=== PATIENT | female | born 1935 | race Asian ===

== ENCOUNTER 2016-07-30 10:22 | Inpatient (IN) | payer MEDICARE, OTHER ==
[~2016-07-30] VITALS: Ht 147.3 cm; Wt 53.3 kg
[~2016-07-30 10:22] MED LIST: AMLO1TAB13 PO; ASPI-1093 PO; FISH1CAP49 PO; LORA10TA7 PO; METO50TA5 PO; MONT10TA21 PO; VITA1CAP PO; VITAD1000 PO
[2016-07-30 10:37] LABS: GLUCOSE,POINT OF CARE 231 MG/DL (70-110)
[2016-07-30 11:35] LABS: HEMATOCRIT 35.6 % (36-46); HEMOGLOBIN 11.8 g/dL (12.0-16.0); MEAN CORPUSCULAR HEMOGLOBIN 27.8 pg (26.0-34.0); MEAN CORPUSCULAR HGB CONC 33.1 G/dL (31.0-37.0); MEAN CORPUSCULAR VOLUME 84 fL (80-100); PLATELET COUNT (AUTO) 138 K/uL (150-450); RED BLOOD CELL COUNT(AUTO) 4.24 MIL/uL (4.00-5.20); RED CELL DISTRIBUTION WIDTH 14.2 % (11.5-14.5)
[2016-07-30 11:44] LABS: ANION GAP 9 mmol/L (8-16); CARBON DIOXIDE 29 mmol/L (22-29); CHLORIDE 103 mmol/L (98-107); CREATININE 0.88 mg/dL (0.60-1.30); GLOMERULAR FILTR. RATE CALC > 60 mL/min (>60); POTASSIUM 3.7 mmol/L (3.5-5.1); SODIUM SERUM 141 mmol/L (136-145); UREA NITROGEN, BLOOD 14 mg/dL (7-18)
[2016-07-30 11:48] LABS: BAND NEUTROPHILS % (MANUAL) 7 % (1-5); LYMPHOCYTES % (MANUAL) 14 % (22-44); RBC MORPHOLOGY COMMENT NORMAL RBC MORPH; TOTAL CELLS COUNTED 100
[2016-07-30 11:50] LABS: ALANINE AMINOTRANSFERASE 38 U/L (12-78); ASPARTATE AMINOTRANSFERASE 23 U/L (15-37); BILIRUBIN,TOTAL 0.5 mg/dL (0.1-1.0); TOTAL PROTEIN, SERUM 8.3 g/dL (6.4-8.2)
[2016-07-30 12:24] LABS: APPEARANCE,URINE CLEAR (CLEAR); GLUCOSE, URINE (UA) NEGATIVE (NEGATIVE); KETONES,URINE NEGATIVE (NEGATIVE); LEUKOCYTE ESTERASE ,URINE SMALL (NEGATIVE); OCCULT BLOOD,URINE SMALL (NEGATIVE); PROTEIN,URINE TRACE (NEGATIVE)
[2016-07-30 12:25] LABS: ADD UA MICROSCOPIC YES
[2016-07-30 12:28] LABS: SQUAMOUS EPITHELIAL CELL,UR Few /LPF (None Seen); WBC,URINE 0-2 /HPF (0-5)
[2016-07-30] MEDS ORDERED: LEVOFLOXACIN 500 MG/D5% WATER 100 ML IV ONE (13:30)
[2016-07-30] MEDS ORDERED: KETOROLAC TROMETHAMINE 30 MG/ML VIAL IVP ONE (13:45)
[2016-07-30] MEDS ORDERED: ALBUTEROL SULFATE 2.5 MG/0.5 ML NEB SOLUTION NEB PRN (16:30)
[2016-07-30] MEDS ORDERED: SODIUM CHLORIDE 0.9% 1,000 ML IV ONE (16:30)
[2016-07-30] MEDS ORDERED: DEXTROSE 50%-WATER 25 GM/50 ML SYRINGE IVP PRN ×2 (16:30)
[2016-07-30] MEDS ORDERED: INSULIN ASPART 100 UNITS/ML SQ PRN (16:30)
[2016-07-30 17:07] VITALS: BP 137/64
[2016-07-30 18:07] LABS: GLUCOSE,POINT OF CARE 172 MG/DL (70-110)
[2016-07-30] MEDS: INSULIN ASPART 100 UNITS/ML SQ PRN (18:15)
[2016-07-30 19:34] VITALS: BP 149/62
[2016-07-30] MEDS: TraMADol HCL 50 MG TABLET PO PRN (20:38)
[2016-07-30] MEDS: DOCUSATE SODIUM 100 MG CAPSULE PO SCH (20:38)
[2016-07-30] MEDS ORDERED: [UNRECOGNIZED DRUG - OTHER] PO SCH (21:00)
[2016-07-30] MEDS: VALSARTAN 160 MG TABLET PO SCH (21:42)
[2016-07-30] MEDS: AmLODIPine BESYLATE 10 MG TABLET PO SCH (21:42)
[2016-07-30] MEDS: METOPROLOL TARTRATE 50 MG TABLET PO SCH (21:42)
[2016-07-30 23:22] VITALS: BP 133/67
[2016-07-30] MEDS: HEPARIN SODIUM,PORCINE 5,000 UNITS/ML VIAL SQ SCH (23:34)
[2016-07-31 05:52] LABS: HEMATOCRIT 32.7 % (36-46); HEMOGLOBIN 10.7 g/dL (12.0-16.0); MEAN CORPUSCULAR HEMOGLOBIN 27.9 pg (26.0-34.0); MEAN CORPUSCULAR HGB CONC 32.8 G/dL (31.0-37.0); MEAN CORPUSCULAR VOLUME 85 fL (80-100); PLATELET COUNT (AUTO) 125 K/uL (150-450); RED BLOOD CELL COUNT(AUTO) 3.85 MIL/uL (4.00-5.20); RED CELL DISTRIBUTION WIDTH 14.1 % (11.5-14.5); WHITE BLOOD COUNT (AUTO) 16.9 K/uL (4.5-11.0)
[2016-07-31 06:27] VITALS: BP 129/69
[2016-07-31 06:56] LABS: GLUCOSE,POINT OF CARE 124 MG/DL (70-110)
[2016-07-31 07:20] LABS: BAND NEUTROPHILS % (MANUAL) 7 % (1-5); LYMPHOCYTES % (MANUAL) 19 % (22-44); TOTAL CELLS COUNTED 100
[2016-07-31 07:27] VITALS: BP 131/61
[2016-07-31] MEDS: LORATADINE 10 MG TABLET PO SCH (08:05)
[2016-07-31] MEDS: METOPROLOL TARTRATE 50 MG TABLET PO SCH ×2 (08:05→20:39)
[2016-07-31] MEDS: FISH OIL/OMEGA-3 FATTY ACIDS 500 MG CAPSULE PO SCH (08:05)
[2016-07-31] MEDS: MONTELUKAST SODIUM 10 MG TABLET PO SCH (08:05)
[2016-07-31] MEDS: HEPARIN SODIUM,PORCINE 5,000 UNITS/ML VIAL SQ SCH ×3 (08:05→23:30)
[2016-07-31] MEDS: VITAMIN B COMPLEX ER TABLET PO SCH (08:05)
[2016-07-31] MEDS: ASPIRIN 81 MG CHEWABLE TABLET PO SCH (08:06)
[2016-07-31] MEDS: DOCUSATE SODIUM 100 MG CAPSULE PO SCH ×2 (08:06→20:39)
[2016-07-31] MEDS: CHOLECALCIFEROL (VIT D3) 1,000 UNITS TABLET PO SCH (08:06)
[2016-07-31] MEDS: ACETAMINOPHEN 325 MG TABLET PO PRN (08:11)
[2016-07-31] MEDS ORDERED: ASPIRIN 81 MG EC TABLET PO SCH (09:00)
[2016-07-31 11:01] VITALS: BP 134/60
[2016-07-31] MEDS: LEVOFLOXACIN 500 MG/D5% WATER 100 ML IV SCH (12:01)
[2016-07-31 12:02] LABS: GLUCOSE,POINT OF CARE 85 MG/DL (70-110)
[2016-07-31 15:38] VITALS: BP 133/64
[2016-07-31] MEDS: AmLODIPine BESYLATE 10 MG TABLET PO SCH (17:30)
[2016-07-31] MEDS: VALSARTAN 160 MG TABLET PO SCH (17:30)
[2016-07-31 18:32] LABS: GLUCOSE,POINT OF CARE 120 MG/DL (70-110)
[2016-07-31 18:32] LABS: GLUCOSE,POINT OF CARE 89 MG/DL (70-110)
[2016-07-31 19:32] VITALS: BP 133/67
[2016-07-31 21:17] LABS: GLUCOSE,POINT OF CARE 119 MG/DL (70-110)
[2016-07-31] MEDS: OxyCODONE HCL/ACETAMINOPHEN 5-325 MG TABLET PO PRN (23:20)
[2016-07-31 23:41] VITALS: BP 141/76
[2016-08-01 05:06] VITALS: BP 127/65
[2016-08-01 06:32] LABS: GLUCOSE,POINT OF CARE 101 MG/DL (70-110)
[2016-08-01 07:52] VITALS: BP 130/81
[2016-08-01] MEDS: LORATADINE 10 MG TABLET PO SCH (08:27)
[2016-08-01] MEDS: METOPROLOL TARTRATE 50 MG TABLET PO SCH ×2 (08:27→19:57)
[2016-08-01] MEDS: DOCUSATE SODIUM 100 MG CAPSULE PO SCH ×2 (08:27→19:57)
[2016-08-01] MEDS: MONTELUKAST SODIUM 10 MG TABLET PO SCH (08:28)
[2016-08-01] MEDS: VITAMIN B COMPLEX ER TABLET PO SCH (08:28)
[2016-08-01] MEDS: CHOLECALCIFEROL (VIT D3) 1,000 UNITS TABLET PO SCH (08:28)
[2016-08-01] MEDS: TraMADol HCL 50 MG TABLET PO PRN (08:28)
[2016-08-01] MEDS: FISH OIL/OMEGA-3 FATTY ACIDS 500 MG CAPSULE PO SCH (08:28)
[2016-08-01] MEDS: HEPARIN SODIUM,PORCINE 5,000 UNITS/ML VIAL SQ SCH ×3 (08:28→23:08)
[2016-08-01] MEDS: ASPIRIN 81 MG CHEWABLE TABLET PO SCH (08:28)
[2016-08-01] MEDS: OxyCODONE HCL/ACETAMINOPHEN 5-325 MG TABLET PO PRN ×2 (08:31→15:29)
[2016-08-01] MEDS ORDERED: SODIUM CHLORIDE 0.9% 100 ML ONE (09:29)
[2016-08-01] MEDS ORDERED: IOVERSOL 320 MG/ML 100 ML VIAL ONE (09:29)
[2016-08-01 11:20] VITALS: BP 118/56
[2016-08-01] MEDS: LEVOFLOXACIN 500 MG/D5% WATER 100 ML IV SCH (11:20)
[2016-08-01 11:47] LABS: GLUCOSE,POINT OF CARE 117 MG/DL (70-110)
[2016-08-01 15:29] VITALS: BP 130/69
[2016-08-01] MEDS: AmLODIPine BESYLATE 10 MG TABLET PO SCH (18:16)
[2016-08-01] MEDS: VALSARTAN 160 MG TABLET PO SCH (18:16)
[2016-08-01 18:21] LABS: GLUCOSE,POINT OF CARE 111 MG/DL (70-110)
[2016-08-01] MEDS: GuaiFENesin SR 600 MG ER TABLET PO SCH (19:57)
[2016-08-01] MEDS: INSULIN ASPART 100 UNITS/ML SQ PRN (19:57)
[2016-08-01 20:04] VITALS: BP 146/78
[2016-08-01 23:17] VITALS: BP 138/69
[2016-08-02 05:00] VITALS: BP 132/70
[2016-08-02] MEDS: INSULIN ASPART 100 UNITS/ML SQ PRN ×2 (05:44→12:26)
[2016-08-02 05:51] LABS: GLUCOSE COMMENT 1 Received Meds; GLUCOSE,POINT OF CARE 147 MG/DL (70-110)
[2016-08-02 06:57] LABS: GLUCOSE COMMENT 1 Received Meds; GLUCOSE,POINT OF CARE 196 MG/DL (70-110)
[2016-08-02 07:07] VITALS: BP 125/55
[2016-08-02 07:28] LABS: BASOPHILS % (AUTO) 0.1 % (0.0-2.0); EOSINOPHILS % (AUTO) 0.2 % (1.0-6.0); HEMATOCRIT 35.2 % (36-46); HEMOGLOBIN 11.6 g/dL (12.0-16.0); LYMPHOCYTES # (AUTO) 1.5 K/uL (1.0-4.8); LYMPHOCYTES % (AUTO) 6.9 % (22.0-44.0); MEAN CORPUSCULAR HEMOGLOBIN 27.8 pg (26.0-34.0); MEAN CORPUSCULAR HGB CONC 33.1 G/dL (31.0-37.0); MEAN CORPUSCULAR VOLUME 84 fL (80-100); MONOCYTES % (AUTO) 31.4 % (2.0-9.0); NEUTROPHILS # (AUTO) 13.7 K/uL (1.8-7.7); NEUTROPHILS % (AUTO) 61.4 % (40.0-70.0); PLATELET COUNT (AUTO) 128 K/uL (150-450); RED BLOOD CELL COUNT(AUTO) 4.18 MIL/uL (4.00-5.20); RED CELL DISTRIBUTION WIDTH 14.3 % (11.5-14.5); WHITE BLOOD COUNT (AUTO) 22.3 K/uL (4.5-11.0)
[2016-08-02] MEDS ORDERED: MAGNESIUM CITRATE 300 ML ORAL SOLUTION PO ONE (07:30)
[2016-08-02] MEDS: GuaiFENesin SR 600 MG ER TABLET PO SCH ×2 (09:40→22:09)
[2016-08-02] MEDS: DOCUSATE SODIUM 100 MG CAPSULE PO SCH ×2 (09:40→21:00)
[2016-08-02] MEDS: MONTELUKAST SODIUM 10 MG TABLET PO SCH (09:40)
[2016-08-02] MEDS: FISH OIL/OMEGA-3 FATTY ACIDS 500 MG CAPSULE PO SCH (09:40)
[2016-08-02] MEDS: CHOLECALCIFEROL (VIT D3) 1,000 UNITS TABLET PO SCH (09:40)
[2016-08-02] MEDS: METOPROLOL TARTRATE 50 MG TABLET PO SCH ×2 (09:40→22:09)
[2016-08-02] MEDS: ASPIRIN 81 MG CHEWABLE TABLET PO SCH (09:40)
[2016-08-02] MEDS: VITAMIN B COMPLEX ER TABLET PO SCH (09:40)
[2016-08-02] MEDS: LORATADINE 10 MG TABLET PO SCH (09:40)
[2016-08-02] MEDS: HEPARIN SODIUM,PORCINE 5,000 UNITS/ML VIAL SQ SCH ×3 (09:42→23:56)
[2016-08-02] MEDS: LEVOFLOXACIN 500 MG/D5% WATER 100 ML IV SCH (09:48)
[2016-08-02] MEDS ORDERED: SODIUM CHLORIDE 0.9% 500 ML IV ONE (09:50)
[2016-08-02] MEDS: TraMADol HCL 50 MG TABLET PO PRN ×3 (09:59→23:56)
[2016-08-02 11:48] VITALS: BP 124/64
[2016-08-02 11:52] LABS: GLUCOSE,POINT OF CARE 220 MG/DL (70-110)
[2016-08-02 15:31] VITALS: BP 109/69
[2016-08-02 17:22] LABS: GLUCOSE,POINT OF CARE 110 MG/DL (70-110)
[2016-08-02] MEDS: AmLODIPine BESYLATE 10 MG TABLET PO SCH (17:43)
[2016-08-02] MEDS: VALSARTAN 160 MG TABLET PO SCH (18:10)
[2016-08-02 19:38] VITALS: BP 144/63
[2016-08-02 19:54] LABS: ANION GAP 11 mmol/L (8-16); CALCIUM, TOTAL 9.1 mg/dL (8.8-10.5); CARBON DIOXIDE 25 mmol/L (22-29); CHLORIDE 102 mmol/L (98-107); CREATININE 0.88 mg/dL (0.60-1.30); GLOMERULAR FILTR. RATE CALC > 60 mL/min (>60); POTASSIUM 3.8 mmol/L (3.5-5.1); SODIUM SERUM 138 mmol/L (136-145); UREA NITROGEN, BLOOD 13 mg/dL (7-18)
[2016-08-02] MEDS ORDERED: GADOBUTROL 1 MMOL/ML 10 ML VIAL IVP ONE (19:55)
[2016-08-02 20:00] LABS: ALANINE AMINOTRANSFERASE 48 U/L (12-78); ALBUMIN 3.7 g/dL (3.4-5.0); ASPARTATE AMINOTRANSFERASE 44 U/L (15-37); BILIRUBIN,TOTAL 0.7 mg/dL (0.1-1.0)
[2016-08-02 23:06] VITALS: BP 117/56
[2016-08-03 04:25] VITALS: BP 116/67
[2016-08-03 05:27] LABS: GLUCOSE COMMENT 1 Received Meds; GLUCOSE,POINT OF CARE 199 MG/DL (70-110)
[2016-08-03] MEDS: TraMADol HCL 50 MG TABLET PO PRN ×2 (06:00→13:12)
[2016-08-03 06:10] LABS: ALBUMIN 3.6 g/dL (3.4-5.0); BILIRUBIN,TOTAL 0.7 mg/dL (0.1-1.0); CALCIUM, TOTAL 8.9 mg/dL (8.8-10.5); CREATININE 0.97 mg/dL (0.60-1.30); POTASSIUM 3.5 mmol/L (3.5-5.1)
[2016-08-03 06:21] LABS: HEMATOCRIT 33.8 % (36-46); HEMOGLOBIN 11.4 g/dL (12.0-16.0); MEAN CORPUSCULAR HEMOGLOBIN 28.2 pg (26.0-34.0); MEAN CORPUSCULAR HGB CONC 33.8 G/dL (31.0-37.0); MEAN CORPUSCULAR VOLUME 84 fL (80-100); PLATELET COUNT (AUTO) 119 K/uL (150-450); RED BLOOD CELL COUNT(AUTO) 4.04 MIL/uL (4.00-5.20); RED CELL DISTRIBUTION WIDTH 14.2 % (11.5-14.5)
[2016-08-03 06:40] LABS: WHITE BLOOD COUNT (AUTO) 39.5 K/uL (4.5-11.0)
[2016-08-03 07:30] VITALS: BP 140/68
[2016-08-03] MEDS: OxyCODONE HCL/ACETAMINOPHEN 5-325 MG TABLET PO PRN ×2 (07:55→15:35)
[2016-08-03] MEDS: CHOLECALCIFEROL (VIT D3) 1,000 UNITS TABLET PO SCH (07:55)
[2016-08-03] MEDS: ASPIRIN 81 MG CHEWABLE TABLET PO SCH (07:55)
[2016-08-03] MEDS: LORATADINE 10 MG TABLET PO SCH (07:56)
[2016-08-03] MEDS: FISH OIL/OMEGA-3 FATTY ACIDS 500 MG CAPSULE PO SCH (07:56)
[2016-08-03] MEDS: DOCUSATE SODIUM 100 MG CAPSULE PO SCH ×2 (07:56→20:16)
[2016-08-03] MEDS: METOPROLOL TARTRATE 50 MG TABLET PO SCH ×2 (07:56→20:17)
[2016-08-03] MEDS: VITAMIN B COMPLEX ER TABLET PO SCH (07:57)
[2016-08-03] MEDS: HEPARIN SODIUM,PORCINE 5,000 UNITS/ML VIAL SQ SCH ×2 (07:57→16:40)
[2016-08-03] MEDS: MONTELUKAST SODIUM 10 MG TABLET PO SCH (07:57)
[2016-08-03] MEDS: GuaiFENesin SR 600 MG ER TABLET PO SCH ×2 (07:58→20:17)
[2016-08-03 08:44] LABS: BAND NEUTROPHILS % (MANUAL) 4 % (1-5); EOSINOPHILS % (MANUAL) 1 % (1-6); LYMPHOCYTES % (MANUAL) 6 % (22-44); METAMYELOCYTES % 1 % (0-0); TOTAL CELLS COUNTED 100
[2016-08-03 08:45] LABS: RBC MORPHOLOGY COMMENT NORMAL RBC MORPH
[2016-08-03] MEDS: LEVOFLOXACIN 500 MG/D5% WATER 100 ML IV SCH (09:37)
[2016-08-03 11:00] VITALS: BP 133/79
[2016-08-03 13:37] LABS: GLUCOSE COMMENT 1 Received Meds; GLUCOSE,POINT OF CARE 131 MG/DL (70-110)
[2016-08-03 13:37] LABS: GLUCOSE,POINT OF CARE 255 MG/DL (70-110)
[2016-08-03 15:20] VITALS: BP 132/62
[2016-08-03 17:37] LABS: GLUCOSE,POINT OF CARE 137 MG/DL (70-110)
[2016-08-03] MEDS: VALSARTAN 160 MG TABLET PO SCH (18:00)
[2016-08-03] MEDS: AmLODIPine BESYLATE 10 MG TABLET PO SCH (18:00)
[2016-08-03 18:34] LABS: URIC ACID 3.7 mg/dL (2.6-7.2)
[2016-08-03 20:01] VITALS: BP 138/64
[2016-08-04] VITALS (8 sets, daily range): BP systolic 105–147; BP diastolic 50–67
[2016-08-04] MEDS: HEPARIN SODIUM,PORCINE 5,000 UNITS/ML VIAL SQ SCH ×4 (00:38→23:51)
[2016-08-04] MEDS: SODIUM CHLORIDE 0.9% 1,000 ML IV SCH ×2 (03:30→14:55)
[2016-08-04 05:33] LABS: GLUCOSE COMMENT 1 Received Meds; GLUCOSE,POINT OF CARE 213 MG/DL (70-110)
[2016-08-04] MEDS ORDERED: LIDOCAINE HCL/PF 2% 5 ML VIAL IM ONE (05:33)
[2016-08-04] MEDS ORDERED: PROPOFOL 1% 20 ML VIAL IVP ONE (05:33)
[2016-08-04] MEDS ORDERED: FentaNYL CITRATE-PF 100 MCG/2 ML VIAL IVP ONE (05:33)
[2016-08-04] MEDS ORDERED: ALBUTEROL SULFATE HFA 90 MCG/PUFF 8 GM INHALER IH ONE (05:33)
[2016-08-04] MEDS ORDERED: SODIUM CL IRRIG SOLN BAG 3,000 ML IRRIG ONE (06:43)
[2016-08-04 06:47] LABS: ALBUMIN 3.1 g/dL (3.4-5.0); BILIRUBIN,TOTAL 0.7 mg/dL (0.1-1.0); CALCIUM, TOTAL 8.9 mg/dL (8.8-10.5); CREATININE 0.91 mg/dL (0.60-1.30); POTASSIUM 3.2 mmol/L (3.5-5.1); TOTAL PROTEIN, SERUM 7.3 g/dL (6.4-8.2)
[2016-08-04 06:51] LABS: GLUCOSE COMMENT 1 Juice/Food/D50 Given; GLUCOSE,POINT OF CARE 122 MG/DL (70-110)
[2016-08-04 07:13] LABS: HEMATOCRIT 30.9 % (36-46); HEMOGLOBIN 10.4 g/dL (12.0-16.0); MEAN CORPUSCULAR HEMOGLOBIN 28.3 pg (26.0-34.0); MEAN CORPUSCULAR HGB CONC 33.6 G/dL (31.0-37.0); MEAN CORPUSCULAR VOLUME 84 fL (80-100); PLATELET COUNT (AUTO) 102 K/uL (150-450); RED BLOOD CELL COUNT(AUTO) 3.66 MIL/uL (4.00-5.20); RED CELL DISTRIBUTION WIDTH 14.6 % (11.5-14.5)
[2016-08-04 07:22] LABS: WHITE BLOOD COUNT (AUTO) 48.1 K/uL (4.5-11.0)
[2016-08-04 07:24] LABS: PROCALCITONIN (PCT) 1.79 ng/mL (<0.50)
[2016-08-04] MEDS ORDERED: RINGERS SOLUTION,LACTATED 1,000 ML IV ONE (07:33)
[2016-08-04] MEDS ORDERED: SODIUM CHLORIDE 0.9% 10 ML ONE (07:40)
[2016-08-04] MEDS ORDERED: VANCOMYCIN HCL 1 GM/VIAL ONE (07:40)
[2016-08-04] MEDS ORDERED: HYDROmorphone 2 MG/ML SYRINGE IVP PRN (08:15)
[2016-08-04] MEDS ORDERED: MEPERIDINE-PF 25 MG/ML SYRINGE IVP PRN (08:15)
[2016-08-04] MEDS ORDERED: FentaNYL CITRATE-PF 100 MCG/2 ML VIAL IVP PRN (08:15)
[2016-08-04 08:40] LABS: BAND NEUTROPHILS % (MANUAL) 14 % (1-5); LYMPHOCYTES % (MANUAL) 5 % (22-44); RBC MORPHOLOGY COMMENT ABNORMAL RBC MORPH; TOTAL CELLS COUNTED 100
[2016-08-04] MEDS: VITAMIN B COMPLEX ER TABLET PO SCH (10:55)
[2016-08-04] MEDS: ASPIRIN 81 MG CHEWABLE TABLET PO SCH (10:55)
[2016-08-04] MEDS: FISH OIL/OMEGA-3 FATTY ACIDS 500 MG CAPSULE PO SCH (10:56)
[2016-08-04] MEDS: CHOLECALCIFEROL (VIT D3) 1,000 UNITS TABLET PO SCH (10:57)
[2016-08-04] MEDS: METOPROLOL TARTRATE 50 MG TABLET PO SCH ×2 (10:57→21:37)
[2016-08-04] MEDS: MONTELUKAST SODIUM 10 MG TABLET PO SCH (10:57)
[2016-08-04] MEDS: OxyCODONE HCL/ACETAMINOPHEN 5-325 MG TABLET PO PRN (10:57)
[2016-08-04] MEDS: POTASSIUM CHLORIDE 20 MEQ ER TABLET PO PRN (10:58)
[2016-08-04] MEDS ORDERED: VANCOMYCIN HCL 500 MG in DEXTROSE 5%-WATER 100 ML IV ONE (11:00)
[2016-08-04] MEDS: DOCUSATE SODIUM 100 MG CAPSULE PO SCH ×2 (11:01→21:37)
[2016-08-04] MEDS ORDERED: SODIUM CHLORIDE 0.9% 250 ML IV ONE (11:14)
[2016-08-04] MEDS: INSULIN ASPART 100 UNITS/ML SQ PRN ×2 (12:04→17:59)
[2016-08-04] MEDS: GuaiFENesin SR 600 MG ER TABLET PO SCH ×2 (12:21→23:51)
[2016-08-04] MEDS: LORATADINE 10 MG TABLET PO SCH (12:21)
[2016-08-04] MEDS ORDERED: 0.9% SODIUM CHLORIDE 10 ML SYRINGE IVP PRN (12:45)
[2016-08-04] MEDS: LEVOFLOXACIN 750 MG/D5% WATER 150 ML IV SCH (13:46)
[2016-08-04] MEDS: TraMADol HCL 50 MG TABLET PO PRN (16:22)
[2016-08-04] MEDS: AmLODIPine BESYLATE 10 MG TABLET PO SCH (18:01)
[2016-08-04] MEDS: VALSARTAN 160 MG TABLET PO SCH (18:02)
[2016-08-04] MEDS: ACETAMINOPHEN 325 MG TABLET PO PRN (21:37)
[2016-08-04] MEDS: OXYGEN THERAPY IH SCH (21:37)
[2016-08-05 01:37] LABS: GLUCOSE COMMENT 1 Received Meds; GLUCOSE,POINT OF CARE 209 MG/DL (70-110)
[2016-08-05] MEDS: SODIUM CHLORIDE 0.9% 1,000 ML IV SCH ×2 (04:05→18:08)
[2016-08-05 04:28] VITALS: BP 114/55
[2016-08-05] MEDS: INSULIN ASPART 100 UNITS/ML SQ PRN ×3 (06:15→20:48)
[2016-08-05 06:34] LABS: HEMATOCRIT 27.5 % (36-46); HEMOGLOBIN 8.9 g/dL (12.0-16.0); MEAN CORPUSCULAR HEMOGLOBIN 27.6 pg (26.0-34.0); MEAN CORPUSCULAR HGB CONC 32.2 G/dL (31.0-37.0); MEAN CORPUSCULAR VOLUME 86 fL (80-100); PLATELET COUNT (AUTO) 101 K/uL (150-450); RED BLOOD CELL COUNT(AUTO) 3.21 MIL/uL (4.00-5.20); RED CELL DISTRIBUTION WIDTH 14.1 % (11.5-14.5)
[2016-08-05 06:52] LABS: ALANINE AMINOTRANSFERASE 58 U/L (12-78); ALBUMIN 2.6 g/dL (3.4-5.0); ANION GAP 9 mmol/L (8-16); ASPARTATE AMINOTRANSFERASE 51 U/L (15-37); BILIRUBIN,TOTAL 0.9 mg/dL (0.1-1.0); CALCIUM, TOTAL 8.4 mg/dL (8.8-10.5); CARBON DIOXIDE 27 mmol/L (22-29); CHLORIDE 104 mmol/L (98-107); CREATININE 0.84 mg/dL (0.60-1.30); GLOMERULAR FILTR. RATE CALC > 60 mL/min (>60); POTASSIUM 4.3 mmol/L (3.5-5.1); SODIUM SERUM 140 mmol/L (136-145); TOTAL PROTEIN, SERUM 6.8 g/dL (6.4-8.2); UREA NITROGEN, BLOOD 8 mg/dL (7-18)
[2016-08-05 06:55] LABS: WHITE BLOOD COUNT (AUTO) 44.2 K/uL (4.5-11.0)
[2016-08-05 07:10] VITALS: BP 132/60
[2016-08-05] MEDS: VANCOMYCIN HCL 1.25 GM in DEXTROSE 5%-WATER 250 ML IV SCH (07:25)
[2016-08-05] MEDS: OXYGEN THERAPY IH SCH ×2 (07:25→19:38)
[2016-08-05] MEDS: TraMADol HCL 50 MG TABLET PO PRN ×2 (07:32→18:09)
[2016-08-05 07:44] LABS: BAND NEUTROPHILS % (MANUAL) 7 % (1-5); LYMPHOCYTES % (MANUAL) 5 % (22-44); REACTIVE LYMPHOCYTES 2 % (0-0); TOTAL CELLS COUNTED 100
[2016-08-05] MEDS: HEPARIN SODIUM,PORCINE 5,000 UNITS/ML VIAL SQ SCH ×3 (08:00→23:37)
[2016-08-05] MEDS: VITAMIN B COMPLEX ER TABLET PO SCH (09:48)
[2016-08-05] MEDS: FISH OIL/OMEGA-3 FATTY ACIDS 500 MG CAPSULE PO SCH (09:48)
[2016-08-05] MEDS: MONTELUKAST SODIUM 10 MG TABLET PO SCH (09:49)
[2016-08-05] MEDS: DOCUSATE SODIUM 100 MG CAPSULE PO SCH ×2 (09:49→20:35)
[2016-08-05] MEDS: ASPIRIN 81 MG CHEWABLE TABLET PO SCH (09:49)
[2016-08-05] MEDS: LORATADINE 10 MG TABLET PO SCH (09:49)
[2016-08-05] MEDS: METOPROLOL TARTRATE 50 MG TABLET PO SCH ×2 (09:49→20:36)
[2016-08-05] MEDS: CHOLECALCIFEROL (VIT D3) 1,000 UNITS TABLET PO SCH (09:49)
[2016-08-05] MEDS: GuaiFENesin SR 600 MG ER TABLET PO SCH ×2 (09:49→20:37)
[2016-08-05] MEDS: LEVOFLOXACIN 750 MG/D5% WATER 150 ML IV SCH (11:00)
[2016-08-05 11:09] VITALS: BP 118/57
[2016-08-05] MEDS: HYDROGEN PEROXIDE 473 ML SOLUTION PO SCH ×3 (13:22→20:37)
[2016-08-05] MEDS: LIDOCAINE HCL 2% VISCOUS 15 ML SOLUTION UDCUP PO SCH ×3 (13:22→20:40)
[2016-08-05 15:02] VITALS: BP 109/57
[2016-08-05] MEDS: AmLODIPine BESYLATE 10 MG TABLET PO SCH (18:08)
[2016-08-05] MEDS: VALSARTAN 160 MG TABLET PO SCH (18:08)
[2016-08-05 19:48] VITALS: BP 132/59
[2016-08-05] MEDS: ACETAMINOPHEN 325 MG TABLET PO PRN (20:36)
[2016-08-05 23:52] VITALS: BP 108/52
[2016-08-06] VITALS (10 sets, daily range): BP systolic 114–128; BP diastolic 50–78
[2016-08-06] MEDS: TraMADol HCL 50 MG TABLET PO PRN ×2 (05:28→12:02)
[2016-08-06] MEDS: MAGNESIUM HYDROXIDE SUSPENSION 30 ML UDCUP PO PRN (05:30)
[2016-08-06 07:12] LABS: HEMATOCRIT 22.9 % (36-46); HEMOGLOBIN 7.6 g/dL (12.0-16.0); MEAN CORPUSCULAR HEMOGLOBIN 28.2 pg (26.0-34.0); MEAN CORPUSCULAR HGB CONC 33.3 G/dL (31.0-37.0); MEAN CORPUSCULAR VOLUME 85 fL (80-100); PLATELET COUNT (AUTO) 111 K/uL (150-450); RED CELL DISTRIBUTION WIDTH 14.9 % (11.5-14.5)
[2016-08-06 07:22] LABS: ALANINE AMINOTRANSFERASE 73 U/L (12-78); ALBUMIN 2.3 g/dL (3.4-5.0); ANION GAP 10 mmol/L (8-16); ASPARTATE AMINOTRANSFERASE 68 U/L (15-37); CALCIUM, TOTAL 8.2 mg/dL (8.8-10.5); CARBON DIOXIDE 27 mmol/L (22-29); CHLORIDE 103 mmol/L (98-107); CREATININE 0.81 mg/dL (0.60-1.30); GLOMERULAR FILTR. RATE CALC > 60 mL/min (>60); POTASSIUM 3.4 mmol/L (3.5-5.1); SODIUM SERUM 140 mmol/L (136-145); TOTAL PROTEIN, SERUM 6.3 g/dL (6.4-8.2); UREA NITROGEN, BLOOD 9 mg/dL (7-18)
[2016-08-06 08:05] LABS: WHITE BLOOD COUNT (AUTO) 33.9 K/uL (4.5-11.0)
[2016-08-06] MEDS: HEPARIN SODIUM,PORCINE 5,000 UNITS/ML VIAL SQ SCH ×2 (08:20→16:00)
[2016-08-06] MEDS: VANCOMYCIN HCL 1.25 GM in DEXTROSE 5%-WATER 250 ML IV SCH (08:20)
[2016-08-06] MEDS: SODIUM CHLORIDE 0.9% 1,000 ML IV SCH ×2 (08:20→21:17)
[2016-08-06] MEDS: OXYGEN THERAPY IH SCH ×2 (08:20→21:16)
[2016-08-06] MEDS: ASPIRIN 81 MG CHEWABLE TABLET PO SCH (08:21)
[2016-08-06] MEDS: MONTELUKAST SODIUM 10 MG TABLET PO SCH (08:21)
[2016-08-06] MEDS: DOCUSATE SODIUM 100 MG CAPSULE PO SCH ×2 (08:21→21:18)
[2016-08-06] MEDS: VITAMIN B COMPLEX ER TABLET PO SCH (08:24)
[2016-08-06] MEDS: LIDOCAINE HCL 2% VISCOUS 15 ML SOLUTION UDCUP PO SCH ×4 (08:24→21:19)
[2016-08-06] MEDS: HYDROGEN PEROXIDE 473 ML SOLUTION PO SCH ×4 (08:24→21:19)
[2016-08-06] MEDS: LORATADINE 10 MG TABLET PO SCH (08:24)
[2016-08-06] MEDS: POTASSIUM CHLORIDE 20 MEQ ER TABLET PO PRN (08:24)
[2016-08-06] MEDS: GuaiFENesin SR 600 MG ER TABLET PO SCH ×2 (08:24→21:18)
[2016-08-06] MEDS: FISH OIL/OMEGA-3 FATTY ACIDS 500 MG CAPSULE PO SCH (08:25)
[2016-08-06] MEDS: METOPROLOL TARTRATE 50 MG TABLET PO SCH ×2 (08:26→21:18)
[2016-08-06] MEDS: CHOLECALCIFEROL (VIT D3) 1,000 UNITS TABLET PO SCH (08:28)
[2016-08-06] MEDS: LEVOFLOXACIN 750 MG/D5% WATER 150 ML IV SCH (10:49)
[2016-08-06 11:00] LABS: BAND NEUTROPHILS % (MANUAL) 6 % (1-5); LYMPHOCYTES % (MANUAL) 7 % (22-44); MYELOCYTES % 1 % (0-0); REACTIVE LYMPHOCYTES 2 % (0-0); TOTAL CELLS COUNTED 100
[2016-08-06 11:06] LABS: RBC MORPHOLOGY COMMENT ABNORMAL R
[2016-08-06] MEDS: INSULIN ASPART 100 UNITS/ML SQ PRN ×3 (12:25→21:25)
[2016-08-06 16:45] LABS: PROTHROMBIN TIME 10.7 SEC (9.4-11.6)
[2016-08-06 16:59] LABS: HEMATOCRIT 20.7 % (36-46); HEMOGLOBIN 6.8 g/dL (12.0-16.0)
[2016-08-06] MEDS: VALSARTAN 160 MG TABLET PO SCH (18:42)
[2016-08-06] MEDS: AmLODIPine BESYLATE 10 MG TABLET PO SCH (18:42)
[2016-08-06] MEDS ORDERED: BISACODYL 10 MG RECTAL RECTAL SUPPOSITORY PR PRN (19:45)
[2016-08-07] VITALS (15 sets, daily range): BP systolic 109–141; BP diastolic 48–64
[2016-08-07 06:52] LABS: ALANINE AMINOTRANSFERASE 56 U/L (12-78); ALBUMIN 2.2 g/dL (3.4-5.0); ANION GAP 10 mmol/L (8-16); ASPARTATE AMINOTRANSFERASE 49 U/L (15-37); BILIRUBIN,TOTAL 1.1 mg/dL (0.1-1.0); CALCIUM, TOTAL 8.1 mg/dL (8.8-10.5); CARBON DIOXIDE 25 mmol/L (22-29); CHLORIDE 101 mmol/L (98-107); CREATININE 0.86 mg/dL (0.60-1.30); GLOMERULAR FILTR. RATE CALC > 60 mL/min (>60); SODIUM SERUM 136 mmol/L (136-145); TOTAL PROTEIN, SERUM 5.8 g/dL (6.4-8.2); UREA NITROGEN, BLOOD 8 mg/dL (7-18)
[2016-08-07 06:59] LABS: HEMOGLOBIN 9.5 g/dL (12.0-16.0); MEAN CORPUSCULAR HEMOGLOBIN 27.7 pg (26.0-34.0); MEAN CORPUSCULAR HGB CONC 32.7 G/dL (31.0-37.0); MEAN CORPUSCULAR VOLUME 85 fL (80-100); PLATELET COUNT (AUTO) 117 K/uL (150-450); RED BLOOD CELL COUNT(AUTO) 3.42 MIL/uL (4.00-5.20); RED CELL DISTRIBUTION WIDTH 15.6 % (11.5-14.5)
[2016-08-07 07:24] LABS: WHITE BLOOD COUNT (AUTO) 45.3 K/uL (4.5-11.0)
[2016-08-07] MEDS: HEPARIN SODIUM,PORCINE 5,000 UNITS/ML VIAL SQ SCH ×3 (07:29→16:09)
[2016-08-07] MEDS: VANCOMYCIN HCL 1.25 GM in DEXTROSE 5%-WATER 250 ML IV SCH (07:33)
[2016-08-07] MEDS: OXYGEN THERAPY IH SCH ×2 (07:34→20:20)
[2016-08-07 07:46] LABS: PROCALCITONIN (PCT) 0.89 ng/mL (<0.50)
[2016-08-07 08:00] LABS: BAND NEUTROPHILS % (MANUAL) 17 % (1-5); LYMPHOCYTES % (MANUAL) 4 % (22-44); METAMYELOCYTES % 3 % (0-0); TOTAL CELLS COUNTED 100
[2016-08-07] MEDS: LORATADINE 10 MG TABLET PO SCH (09:18)
[2016-08-07] MEDS: CHOLECALCIFEROL (VIT D3) 1,000 UNITS TABLET PO SCH (09:18)
[2016-08-07] MEDS: METOPROLOL TARTRATE 50 MG TABLET PO SCH ×2 (09:18→20:16)
[2016-08-07] MEDS: DOCUSATE SODIUM 100 MG CAPSULE PO SCH ×2 (09:18→20:14)
[2016-08-07] MEDS: VITAMIN B COMPLEX ER TABLET PO SCH (09:18)
[2016-08-07] MEDS: ASPIRIN 81 MG CHEWABLE TABLET PO SCH (09:18)
[2016-08-07] MEDS: MONTELUKAST SODIUM 10 MG TABLET PO SCH (09:18)
[2016-08-07] MEDS: LIDOCAINE HCL 2% VISCOUS 15 ML SOLUTION UDCUP PO SCH ×4 (09:18→20:17)
[2016-08-07] MEDS: FISH OIL/OMEGA-3 FATTY ACIDS 500 MG CAPSULE PO SCH (09:18)
[2016-08-07] MEDS: OxyCODONE HCL/ACETAMINOPHEN 5-325 MG TABLET PO PRN ×2 (09:18→20:15)
[2016-08-07] MEDS: GuaiFENesin SR 600 MG ER TABLET PO SCH ×2 (09:18→20:14)
[2016-08-07] MEDS: HYDROGEN PEROXIDE 473 ML SOLUTION PO SCH ×4 (09:18→20:24)
[2016-08-07] MEDS: LEVOFLOXACIN 750 MG/D5% WATER 150 ML IV SCH (09:44)
[2016-08-07] MEDS: SODIUM CHLORIDE 0.9% 1,000 ML IV SCH (09:48)
[2016-08-07] MEDS: INSULIN ASPART 100 UNITS/ML SQ PRN ×3 (12:02→20:42)
[2016-08-07] MEDS: AmLODIPine BESYLATE 10 MG TABLET PO SCH (18:11)
[2016-08-07] MEDS: VALSARTAN 160 MG TABLET PO SCH (18:11)
[2016-08-07] MEDS ORDERED: VANCOMYCIN HCL 500 MG in DEXTROSE 5%-WATER 100 ML IV ONE (20:00)
[2016-08-08] VITALS (7 sets, daily range): BP systolic 109–140; BP diastolic 50–81
[2016-08-08 06:23] LABS: HEMATOCRIT 25.9 % (36-46); HEMOGLOBIN 8.7 g/dL (12.0-16.0); MEAN CORPUSCULAR HEMOGLOBIN 28.3 pg (26.0-34.0); MEAN CORPUSCULAR HGB CONC 33.7 G/dL (31.0-37.0); MEAN CORPUSCULAR VOLUME 84 fL (80-100); PLATELET COUNT (AUTO) 143 K/uL (150-450); RED BLOOD CELL COUNT(AUTO) 3.08 MIL/uL (4.00-5.20); RED CELL DISTRIBUTION WIDTH 16.4 % (11.5-14.5)
[2016-08-08 07:27] LABS: WHITE BLOOD COUNT (AUTO) 31.8 K/uL (4.5-11.0)
[2016-08-08 07:29] LABS: ALANINE AMINOTRANSFERASE 56 U/L (12-78); ALBUMIN 2.4 g/dL (3.4-5.0); ANION GAP 9 mmol/L (8-16); ASPARTATE AMINOTRANSFERASE 46 U/L (15-37); BILIRUBIN,TOTAL 0.9 mg/dL (0.1-1.0); CALCIUM, TOTAL 8.2 mg/dL (8.8-10.5); CARBON DIOXIDE 28 mmol/L (22-29); CHLORIDE 104 mmol/L (98-107); CREATININE 0.81 mg/dL (0.60-1.30); GLOMERULAR FILTR. RATE CALC > 60 mL/min (>60); POTASSIUM 3.2 mmol/L (3.5-5.1); SODIUM SERUM 141 mmol/L (136-145); TOTAL PROTEIN, SERUM 6.3 g/dL (6.4-8.2); UREA NITROGEN, BLOOD 8 mg/dL (7-18)
[2016-08-08] MEDS: VANCOMYCIN HCL 750 MG in DEXTROSE 5%-WATER 150 ML IV SCH ×2 (07:59→20:33)
[2016-08-08] MEDS: OXYGEN THERAPY IH SCH ×2 (07:59→20:33)
[2016-08-08] MEDS ORDERED: SODIUM CHLORIDE 0.9% 100 ML ONE (08:16)
[2016-08-08] MEDS: DOCUSATE SODIUM 100 MG CAPSULE PO SCH ×2 (08:19→20:34)
[2016-08-08] MEDS: METOPROLOL TARTRATE 50 MG TABLET PO SCH ×2 (08:19→20:34)
[2016-08-08] MEDS: LORATADINE 10 MG TABLET PO SCH (08:19)
[2016-08-08] MEDS: FISH OIL/OMEGA-3 FATTY ACIDS 500 MG CAPSULE PO SCH (08:19)
[2016-08-08] MEDS: HEPARIN SODIUM,PORCINE 5,000 UNITS/ML VIAL SQ SCH ×4 (08:19→23:40)
[2016-08-08] MEDS: GuaiFENesin SR 600 MG ER TABLET PO SCH ×2 (08:19→20:34)
[2016-08-08] MEDS: LIDOCAINE HCL 2% VISCOUS 15 ML SOLUTION UDCUP PO SCH ×4 (08:20→20:34)
[2016-08-08] MEDS: ASPIRIN 81 MG CHEWABLE TABLET PO SCH (08:20)
[2016-08-08] MEDS: MONTELUKAST SODIUM 10 MG TABLET PO SCH (08:20)
[2016-08-08] MEDS: CHOLECALCIFEROL (VIT D3) 1,000 UNITS TABLET PO SCH (08:20)
[2016-08-08] MEDS: HYDROGEN PEROXIDE 473 ML SOLUTION PO SCH ×4 (08:20→20:34)
[2016-08-08 09:42] LABS: BAND NEUTROPHILS % (MANUAL) 12 % (1-5); LYMPHOCYTES % (MANUAL) 6 % (22-44); METAMYELOCYTES % 1 % (0-0); TOTAL CELLS COUNTED 100
[2016-08-08 09:43] LABS: RBC MORPHOLOGY COMMENT NORMAL RBC MORPH
[2016-08-08] MEDS: LEVOFLOXACIN 750 MG/D5% WATER 150 ML IV SCH (10:03)
[2016-08-08] MEDS: VITAMIN B COMPLEX ER TABLET PO SCH (10:03)
[2016-08-08] MEDS: MAGNESIUM HYDROXIDE SUSPENSION 30 ML UDCUP PO PRN (12:06)
[2016-08-08] MEDS: INSULIN ASPART 100 UNITS/ML SQ PRN ×2 (12:06→21:02)
[2016-08-08] MEDS: ACETAMINOPHEN 325 MG TABLET PO PRN (12:07)
[2016-08-08] MEDS: POTASSIUM CHLORIDE 20 MEQ ER TABLET PO PRN (15:52)
[2016-08-08 16:31] LABS: MISCELLANEOUS TEST REF LAB See Separate Report.
[2016-08-08] MEDS: VALSARTAN 160 MG TABLET PO SCH (18:30)
[2016-08-08] MEDS: AmLODIPine BESYLATE 10 MG TABLET PO SCH (18:30)
[2016-08-08] MEDS ORDERED: SODIUM CHLORIDE 0.9% 250 ML IV ONE (20:41)
[2016-08-08] MEDS: OxyCODONE HCL/ACETAMINOPHEN 5-325 MG TABLET PO PRN (21:05)
[2016-08-09 04:15] VITALS: BP 132/85
[2016-08-09] MEDS: OxyCODONE HCL/ACETAMINOPHEN 5-325 MG TABLET PO PRN ×3 (06:12→21:56)
[2016-08-09 07:05] VITALS: BP 116/55
[2016-08-09 07:22] LABS: HEMATOCRIT 25.8 % (36-46); HEMOGLOBIN 8.4 g/dL (12.0-16.0); MEAN CORPUSCULAR HEMOGLOBIN 27.6 pg (26.0-34.0); MEAN CORPUSCULAR HGB CONC 32.4 G/dL (31.0-37.0); MEAN CORPUSCULAR VOLUME 85 fL (80-100); PLATELET COUNT (AUTO) 179 K/uL (150-450); RED BLOOD CELL COUNT(AUTO) 3.03 MIL/uL (4.00-5.20); RED CELL DISTRIBUTION WIDTH 16.1 % (11.5-14.5)
[2016-08-09] MEDS: VANCOMYCIN HCL 750 MG in DEXTROSE 5%-WATER 150 ML IV SCH ×2 (07:26→20:53)
[2016-08-09] MEDS: OXYGEN THERAPY IH SCH ×2 (07:30→20:53)
[2016-08-09] MEDS: METOPROLOL TARTRATE 50 MG TABLET PO SCH ×2 (07:38→21:54)
[2016-08-09] MEDS: ASPIRIN 81 MG CHEWABLE TABLET PO SCH (07:38)
[2016-08-09] MEDS: CHOLECALCIFEROL (VIT D3) 1,000 UNITS TABLET PO SCH (07:38)
[2016-08-09] MEDS: FISH OIL/OMEGA-3 FATTY ACIDS 500 MG CAPSULE PO SCH (07:38)
[2016-08-09] MEDS: HEPARIN SODIUM,PORCINE 5,000 UNITS/ML VIAL SQ SCH ×2 (07:38→15:10)
[2016-08-09] MEDS: MONTELUKAST SODIUM 10 MG TABLET PO SCH (07:38)
[2016-08-09] MEDS: VITAMIN B COMPLEX ER TABLET PO SCH (07:39)
[2016-08-09] MEDS: HYDROGEN PEROXIDE 473 ML SOLUTION PO SCH ×4 (07:39→22:06)
[2016-08-09] MEDS: GuaiFENesin SR 600 MG ER TABLET PO SCH ×2 (07:39→21:54)
[2016-08-09] MEDS: LORATADINE 10 MG TABLET PO SCH (07:39)
[2016-08-09 07:40] LABS: ALANINE AMINOTRANSFERASE 76 U/L (12-78); ALBUMIN 2.4 g/dL (3.4-5.0); ANION GAP 9 mmol/L (8-16); ASPARTATE AMINOTRANSFERASE 65 U/L (15-37); CALCIUM, TOTAL 8.2 mg/dL (8.8-10.5); CARBON DIOXIDE 28 mmol/L (22-29); CHLORIDE 102 mmol/L (98-107); CREATINE KINASE, TOTAL 44 U/L (26-192); CREATININE 0.81 mg/dL (0.60-1.30); GLOMERULAR FILTR. RATE CALC > 60 mL/min (>60); POTASSIUM 3.9 mmol/L (3.5-5.1); SODIUM SERUM 139 mmol/L (136-145); TOTAL PROTEIN, SERUM 6.4 g/dL (6.4-8.2); UREA NITROGEN, BLOOD 8 mg/dL (7-18)
[2016-08-09] MEDS: LIDOCAINE HCL 2% VISCOUS 15 ML SOLUTION UDCUP PO SCH ×4 (07:40→22:06)
[2016-08-09] MEDS: DOCUSATE SODIUM 100 MG CAPSULE PO SCH ×2 (07:41→21:54)
[2016-08-09 07:42] LABS: WHITE BLOOD COUNT (AUTO) 35.8 K/uL (4.5-11.0)
[2016-08-09 07:50] LABS: B-TYPE NATRIURETIC PEPTIDE 93 pg/mL (0-100)
[2016-08-09] MEDS: LEVOFLOXACIN 750 MG/D5% WATER 150 ML IV SCH (09:27)
[2016-08-09 09:33] LABS: BAND NEUTROPHILS % (MANUAL) 9 % (1-5); LYMPHOCYTES % (MANUAL) 8 % (22-44); TOTAL CELLS COUNTED 100
[2016-08-09 09:35] LABS: METAMYELOCYTES % 2 % (0-0)
[2016-08-09 11:01] VITALS: BP 106/53
[2016-08-09] MEDS: INSULIN ASPART 100 UNITS/ML SQ PRN ×3 (11:51→22:05)
[2016-08-09 14:57] VITALS: BP 139/58
[2016-08-09] MEDS: VALSARTAN 160 MG TABLET PO SCH (18:05)
[2016-08-09] MEDS: AmLODIPine BESYLATE 10 MG TABLET PO SCH (18:05)
[2016-08-09 19:34] VITALS: BP 141/67
[2016-08-09 23:17] VITALS: BP 122/59
[2016-08-10] MEDS: HEPARIN SODIUM,PORCINE 5,000 UNITS/ML VIAL SQ SCH ×3 (00:10→17:16)
[2016-08-10] MEDS: ACETAMINOPHEN 325 MG TABLET PO PRN (00:11)
[2016-08-10 04:38] VITALS: BP 124/63
[2016-08-10] MEDS: INSULIN ASPART 100 UNITS/ML SQ PRN ×2 (06:10→22:05)
[2016-08-10 06:42] LABS: HEMATOCRIT 26.5 % (36-46); HEMOGLOBIN 8.7 g/dL (12.0-16.0); MEAN CORPUSCULAR HEMOGLOBIN 28.7 pg (26.0-34.0); MEAN CORPUSCULAR HGB CONC 32.9 G/dL (31.0-37.0); MEAN CORPUSCULAR VOLUME 87 fL (80-100); PLATELET COUNT (AUTO) 213 K/uL (150-450); RED BLOOD CELL COUNT(AUTO) 3.04 MIL/uL (4.00-5.20)
[2016-08-10 07:33] VITALS: BP 132/70
[2016-08-10 07:45] LABS: WHITE BLOOD COUNT (AUTO) 37.4 K/uL (4.5-11.0)
[2016-08-10] MEDS: OXYGEN THERAPY IH SCH ×2 (08:26→20:53)
[2016-08-10] MEDS: VANCOMYCIN HCL 750 MG in DEXTROSE 5%-WATER 150 ML IV SCH ×2 (08:26→20:53)
[2016-08-10] MEDS: HYDROGEN PEROXIDE 473 ML SOLUTION PO SCH ×5 (08:35→22:02)
[2016-08-10] MEDS: LIDOCAINE HCL 2% VISCOUS 15 ML SOLUTION UDCUP PO SCH ×5 (08:37→22:02)
[2016-08-10] MEDS: FISH OIL/OMEGA-3 FATTY ACIDS 500 MG CAPSULE PO SCH (09:03)
[2016-08-10] MEDS: VITAMIN B COMPLEX ER TABLET PO SCH (09:03)
[2016-08-10] MEDS: METOPROLOL TARTRATE 50 MG TABLET PO SCH ×2 (09:03→22:02)
[2016-08-10] MEDS: ASPIRIN 81 MG CHEWABLE TABLET PO SCH (09:03)
[2016-08-10] MEDS: DOCUSATE SODIUM 100 MG CAPSULE PO SCH ×3 (09:04→22:02)
[2016-08-10] MEDS: GuaiFENesin SR 600 MG ER TABLET PO SCH ×2 (09:04→22:02)
[2016-08-10] MEDS: LORATADINE 10 MG TABLET PO SCH (09:04)
[2016-08-10] MEDS: CHOLECALCIFEROL (VIT D3) 1,000 UNITS TABLET PO SCH (09:05)
[2016-08-10] MEDS: MONTELUKAST SODIUM 10 MG TABLET PO SCH (09:05)
[2016-08-10] MEDS ORDERED: IOVERSOL 320 MG/ML 100 ML VIAL ONE (09:22)
[2016-08-10] MEDS ORDERED: BARIUM SULFATE 0.1% SUSPENSION 450 ML BOTTLE ONE (09:23)
[2016-08-10] MEDS ORDERED: SODIUM CHLORIDE 0.9% 100 ML ONE (09:23)
[2016-08-10 10:03] LABS: BAND NEUTROPHILS % (MANUAL) 8 % (1-5); LYMPHOCYTES % (MANUAL) 7 % (22-44); METAMYELOCYTES % 2 % (0-0); TOTAL CELLS COUNTED 100
[2016-08-10] MEDS: LEVOFLOXACIN 750 MG/D5% WATER 150 ML IV SCH (10:14)
[2016-08-10] MEDS ORDERED: HEPARIN SODIUM 1000 UNITS/NS 500 ML ONE (11:02)
[2016-08-10 11:24] VITALS: BP 133/63
[2016-08-10 15:23] VITALS: BP 152/70
[2016-08-10] MEDS: OxyCODONE HCL/ACETAMINOPHEN 5-325 MG TABLET PO PRN (17:15)
[2016-08-10] MEDS: VALSARTAN 160 MG TABLET PO SCH (17:16)
[2016-08-10] MEDS: AmLODIPine BESYLATE 10 MG TABLET PO SCH (17:16)
[2016-08-10] MEDS ORDERED: *CLINICAL-AZTREONAM DOSING CLINICAL ONE (19:00)
[2016-08-10 20:05] VITALS: BP 133/56
[2016-08-10] MEDS: AZTREONAM 1 GM in DEXTROSE 5%-WATER 50 ML IV SCH (22:02)
[2016-08-10] MEDS: MetroNIDAZOLE 500 MG TABLET PO SCH (22:02)
[2016-08-11 00:06] VITALS: BP 119/52
[2016-08-11] MEDS: HEPARIN SODIUM,PORCINE 5,000 UNITS/ML VIAL SQ SCH ×3 (00:27→16:38)
[2016-08-11 04:31] VITALS: BP 118/54
[2016-08-11] MEDS: AZTREONAM 1 GM in DEXTROSE 5%-WATER 50 ML IV SCH ×3 (06:08→22:07)
[2016-08-11 07:20] VITALS: BP 112/64
[2016-08-11] MEDS: DOCUSATE SODIUM 100 MG CAPSULE PO SCH ×2 (09:00→22:07)
[2016-08-11 09:37] LABS: HEMATOCRIT 25.8 % (36-46); HEMOGLOBIN 8.3 g/dL (12.0-16.0); MEAN CORPUSCULAR HEMOGLOBIN 27.6 pg (26.0-34.0); MEAN CORPUSCULAR HGB CONC 32.3 G/dL (31.0-37.0); MEAN CORPUSCULAR VOLUME 85 fL (80-100); PLATELET COUNT (AUTO) 260 K/uL (150-450); RED BLOOD CELL COUNT(AUTO) 3.02 MIL/uL (4.00-5.20); RED CELL DISTRIBUTION WIDTH 16.7 % (11.5-14.5)
[2016-08-11] MEDS: VANCOMYCIN HCL 750 MG in DEXTROSE 5%-WATER 150 ML IV SCH ×2 (09:37→19:59)
[2016-08-11 09:40] LABS: WHITE BLOOD COUNT (AUTO) 37.9 K/uL (4.5-11.0)
[2016-08-11] MEDS: ASPIRIN 81 MG CHEWABLE TABLET PO SCH (09:40)
[2016-08-11] MEDS: LIDOCAINE HCL 2% VISCOUS 15 ML SOLUTION UDCUP PO SCH ×4 (09:41→22:07)
[2016-08-11] MEDS: CHOLECALCIFEROL (VIT D3) 1,000 UNITS TABLET PO SCH (09:41)
[2016-08-11] MEDS: MONTELUKAST SODIUM 10 MG TABLET PO SCH (09:41)
[2016-08-11] MEDS: MetroNIDAZOLE 500 MG TABLET PO SCH ×3 (09:41→22:07)
[2016-08-11] MEDS: METOPROLOL TARTRATE 50 MG TABLET PO SCH ×2 (09:41→22:07)
[2016-08-11] MEDS: GuaiFENesin SR 600 MG ER TABLET PO SCH ×2 (09:42→22:07)
[2016-08-11] MEDS: OXYGEN THERAPY IH SCH ×2 (09:42→19:59)
[2016-08-11] MEDS: VITAMIN B COMPLEX ER TABLET PO SCH (09:42)
[2016-08-11] MEDS: FISH OIL/OMEGA-3 FATTY ACIDS 500 MG CAPSULE PO SCH (09:42)
[2016-08-11] MEDS: LORATADINE 10 MG TABLET PO SCH (09:42)
[2016-08-11] MEDS: HYDROGEN PEROXIDE 473 ML SOLUTION PO SCH ×4 (09:50→22:07)
[2016-08-11 09:54] LABS: ALBUMIN 2.2 g/dL (3.4-5.0); BILIRUBIN,TOTAL 0.7 mg/dL (0.1-1.0); CALCIUM, TOTAL 8.3 mg/dL (8.8-10.5); CREATININE 0.91 mg/dL (0.60-1.30); POTASSIUM 3.8 mmol/L (3.5-5.1); TOTAL PROTEIN, SERUM 6.6 g/dL (6.4-8.2)
[2016-08-11 10:02] LABS: BAND NEUTROPHILS % (MANUAL) 13 % (1-5); BASOPHILS % (MANUAL) 1 % (0-2); EOSINOPHILS % (MANUAL) 1 % (1-6); LYMPHOCYTES % (MANUAL) 12 % (22-44); METAMYELOCYTES % 2 % (0-0); TOTAL CELLS COUNTED 100
[2016-08-11 10:03] LABS: RBC MORPHOLOGY COMMENT ABNORMAL RBC MORPH
[2016-08-11] MEDS: OxyCODONE HCL/ACETAMINOPHEN 5-325 MG TABLET PO PRN (11:17)
[2016-08-11 11:47] VITALS: BP 124/59
[2016-08-11] MEDS: INSULIN ASPART 100 UNITS/ML SQ PRN ×2 (12:00→17:49)
[2016-08-11 15:42] VITALS: BP 128/65
[2016-08-11] MEDS: VALSARTAN 160 MG TABLET PO SCH (19:18)
[2016-08-11] MEDS: AmLODIPine BESYLATE 10 MG TABLET PO SCH (19:18)
[2016-08-11 19:47] LABS: GLUCOSE,POINT OF CARE 95 MG/DL (70-110)
[2016-08-11 19:47] LABS: GLUCOSE COMMENT 1 Received Meds; GLUCOSE,POINT OF CARE 143 MG/DL (70-110)
[2016-08-11 19:47] LABS: GLUCOSE,POINT OF CARE 129 MG/DL (70-110)
[2016-08-11 19:47] LABS: GLUCOSE COMMENT 1 Received Meds; GLUCOSE,POINT OF CARE 227 MG/DL (70-110)
[2016-08-11 19:48] VITALS: BP 140/60
[2016-08-11 19:57] LABS: GLUCOSE COMMENT 1 Received Meds; GLUCOSE,POINT OF CARE 150 MG/DL (70-110)
[2016-08-11 19:57] LABS: GLUCOSE COMMENT 1 Received Meds; GLUCOSE,POINT OF CARE 193 MG/DL (70-110)
[2016-08-11 19:57] LABS: GLUCOSE COMMENT 1 Received Meds; GLUCOSE,POINT OF CARE 248 MG/DL (70-110)
[2016-08-12] VITALS (7 sets, daily range): BP systolic 98–132; BP diastolic 53–68
[2016-08-12] MEDS: HEPARIN SODIUM,PORCINE 5,000 UNITS/ML VIAL SQ SCH ×4 (00:55→23:31)
[2016-08-12] MEDS: ACETAMINOPHEN 325 MG TABLET PO PRN ×2 (00:56→22:39)
[2016-08-12] MEDS: AZTREONAM 1 GM in DEXTROSE 5%-WATER 50 ML IV SCH ×3 (06:35→22:26)
[2016-08-12 07:09] LABS: CALCIUM, TOTAL 8.7 mg/dL (8.8-10.5); CREATININE 0.99 mg/dL (0.60-1.30); POTASSIUM 3.7 mmol/L (3.5-5.1)
[2016-08-12 07:18] LABS: HEMATOCRIT 25.8 % (36-46); HEMOGLOBIN 8.4 g/dL (12.0-16.0); MEAN CORPUSCULAR HEMOGLOBIN 28.2 pg (26.0-34.0); MEAN CORPUSCULAR HGB CONC 32.5 G/dL (31.0-37.0); MEAN CORPUSCULAR VOLUME 87 fL (80-100); PLATELET COUNT (AUTO) 298 K/uL (150-450); RED BLOOD CELL COUNT(AUTO) 2.98 MIL/uL (4.00-5.20); RED CELL DISTRIBUTION WIDTH 16.5 % (11.5-14.5)
[2016-08-12] MEDS: VANCOMYCIN HCL 750 MG in DEXTROSE 5%-WATER 150 ML IV SCH ×2 (07:38→20:40)
[2016-08-12] MEDS: OXYGEN THERAPY IH SCH ×2 (07:38→20:41)
[2016-08-12 07:52] LABS: GLUCOSE,POINT OF CARE 131 MG/DL (70-110)
[2016-08-12 07:52] LABS: GLUCOSE COMMENT 1 Received Meds; GLUCOSE,POINT OF CARE 212 MG/DL (70-110)
[2016-08-12 07:52] LABS: GLUCOSE,POINT OF CARE 125 MG/DL (70-110)
[2016-08-12 07:57] LABS: GLUCOSE,POINT OF CARE 140 MG/DL (70-110)
[2016-08-12 08:25] LABS: WHITE BLOOD COUNT (AUTO) 39.6 K/uL (4.5-11.0)
[2016-08-12] MEDS: CHOLECALCIFEROL (VIT D3) 1,000 UNITS TABLET PO SCH (08:55)
[2016-08-12] MEDS: MetroNIDAZOLE 500 MG TABLET PO SCH ×3 (08:55→20:41)
[2016-08-12] MEDS: METOPROLOL TARTRATE 50 MG TABLET PO SCH ×2 (08:55→20:41)
[2016-08-12] MEDS: ASPIRIN 81 MG CHEWABLE TABLET PO SCH (08:55)
[2016-08-12] MEDS: VITAMIN B COMPLEX ER TABLET PO SCH (08:55)
[2016-08-12] MEDS: FISH OIL/OMEGA-3 FATTY ACIDS 500 MG CAPSULE PO SCH (08:56)
[2016-08-12] MEDS: MONTELUKAST SODIUM 10 MG TABLET PO SCH (08:56)
[2016-08-12] MEDS: LIDOCAINE HCL 2% VISCOUS 15 ML SOLUTION UDCUP PO SCH ×4 (08:56→20:42)
[2016-08-12] MEDS: GuaiFENesin SR 600 MG ER TABLET PO SCH ×2 (08:56→20:41)
[2016-08-12] MEDS: LORATADINE 10 MG TABLET PO SCH (08:56)
[2016-08-12] MEDS: DOCUSATE SODIUM 100 MG CAPSULE PO SCH ×2 (08:56→20:41)
[2016-08-12] MEDS: HYDROGEN PEROXIDE 473 ML SOLUTION PO SCH ×4 (08:56→20:41)
[2016-08-12 10:37] LABS: BAND NEUTROPHILS % (MANUAL) 4 % (1-5); LYMPHOCYTES % (MANUAL) 12 % (22-44); METAMYELOCYTES % 4 % (0-0); TOTAL CELLS COUNTED 100
[2016-08-12 10:39] LABS: RBC MORPHOLOGY COMMENT ABNORMAL R
[2016-08-12] MEDS: OxyCODONE HCL/ACETAMINOPHEN 5-325 MG TABLET PO PRN ×2 (11:21→17:49)
[2016-08-12] MEDS: INSULIN ASPART 100 UNITS/ML SQ PRN ×3 (12:16→22:28)
[2016-08-12] MEDS: VALSARTAN 160 MG TABLET PO SCH (18:13)
[2016-08-12] MEDS: AmLODIPine BESYLATE 10 MG TABLET PO SCH (18:13)
[2016-08-13 04:01] VITALS: BP 116/51
[2016-08-13] MEDS: AZTREONAM 1 GM in DEXTROSE 5%-WATER 50 ML IV SCH ×2 (05:30→11:54)
[2016-08-13 07:33] VITALS: BP 123/56
[2016-08-13 07:47] LABS: HEMATOCRIT 26.4 % (36-46); HEMOGLOBIN 8.4 g/dL (12.0-16.0); MEAN CORPUSCULAR HEMOGLOBIN 27.4 pg (26.0-34.0); MEAN CORPUSCULAR HGB CONC 31.8 G/dL (31.0-37.0); MEAN CORPUSCULAR VOLUME 86 fL (80-100); PLATELET COUNT (AUTO) 313 K/uL (150-450); RED BLOOD CELL COUNT(AUTO) 3.06 MIL/uL (4.00-5.20); RED CELL DISTRIBUTION WIDTH 17.5 % (11.5-14.5)
[2016-08-13 07:59] LABS: CALCIUM, TOTAL 8.7 mg/dL (8.8-10.5); CREATININE 0.93 mg/dL (0.60-1.30); POTASSIUM 3.7 mmol/L (3.5-5.1)
[2016-08-13 08:13] LABS: WHITE BLOOD COUNT (AUTO) 35.2 K/uL (4.5-11.0)
[2016-08-13] MEDS: DOCUSATE SODIUM 100 MG CAPSULE PO SCH (08:22)
[2016-08-13] MEDS: LIDOCAINE HCL 2% VISCOUS 15 ML SOLUTION UDCUP PO SCH ×3 (08:26→16:00)
[2016-08-13] MEDS: ASPIRIN 81 MG CHEWABLE TABLET PO SCH (08:26)
[2016-08-13] MEDS: HEPARIN SODIUM,PORCINE 5,000 UNITS/ML VIAL SQ SCH ×2 (08:26→16:00)
[2016-08-13] MEDS: HYDROGEN PEROXIDE 473 ML SOLUTION PO SCH ×3 (08:26→16:00)
[2016-08-13] MEDS: MetroNIDAZOLE 500 MG TABLET PO SCH ×2 (08:26→18:48)
[2016-08-13] MEDS: MONTELUKAST SODIUM 10 MG TABLET PO SCH (08:27)
[2016-08-13] MEDS: VITAMIN B COMPLEX ER TABLET PO SCH (08:27)
[2016-08-13] MEDS: GuaiFENesin SR 600 MG ER TABLET PO SCH (08:27)
[2016-08-13] MEDS: CHOLECALCIFEROL (VIT D3) 1,000 UNITS TABLET PO SCH (08:27)
[2016-08-13] MEDS: LORATADINE 10 MG TABLET PO SCH (08:27)
[2016-08-13] MEDS: FISH OIL/OMEGA-3 FATTY ACIDS 500 MG CAPSULE PO SCH (08:27)
[2016-08-13] MEDS: METOPROLOL TARTRATE 50 MG TABLET PO SCH (08:27)
[2016-08-13] MEDS: VANCOMYCIN HCL 750 MG in DEXTROSE 5%-WATER 150 ML IV SCH (08:28)
[2016-08-13] MEDS: OXYGEN THERAPY IH SCH (08:28)
[2016-08-13 09:07] LABS: BAND NEUTROPHILS % (MANUAL) 5 % (1-5); LYMPHOCYTES % (MANUAL) 11 % (22-44); METAMYELOCYTES % 3 % (0-0); MYELOCYTES % 1 % (0-0); TOTAL CELLS COUNTED 100
[2016-08-13 09:10] LABS: RBC MORPHOLOGY COMMENT ABNORMAL R
[2016-08-13 11:29] VITALS: BP 107/44
[2016-08-13] MEDS: INSULIN ASPART 100 UNITS/ML SQ PRN (11:55)
[2016-08-13 16:03] VITALS: BP 132/62
[2016-08-13] MEDS: AmLODIPine BESYLATE 10 MG TABLET PO SCH (18:30)
[2016-08-13] MEDS: VALSARTAN 160 MG TABLET PO SCH (18:48)
[2016-08-13 19:52] VITALS: BP 126/60
[2016-08-16 17:37] LABS: GLUCOSE COMMENT 1 Received Meds; GLUCOSE,POINT OF CARE 190 MG/DL (70-110)
[2016-08-16 17:37] LABS: GLUCOSE COMMENT 1 Received Meds; GLUCOSE,POINT OF CARE 171 MG/DL (70-110)
[2016-08-18 18:18] LABS: GLUCOSE,POINT OF CARE 143 MG/DL (70-110)
[2016-08-18 18:18] LABS: GLUCOSE COMMENT 1 Received Meds; GLUCOSE,POINT OF CARE 177 MG/DL (70-110)
[2016-08-18 18:18] LABS: GLUCOSE COMMENT 1 Received Meds; GLUCOSE,POINT OF CARE 224 MG/DL (70-110)
[2016-08-19 06:29] LABS: GLUCOSE COMMENT 1 Received Meds; GLUCOSE,POINT OF CARE 202 MG/DL (70-110)
[2016-08-19 06:29] LABS: GLUCOSE,POINT OF CARE 140 MG/DL (70-110)
[2016-08-19 06:29] LABS: GLUCOSE COMMENT 1 Received Meds; GLUCOSE,POINT OF CARE 225 MG/DL (70-110)
[2016-08-19 06:30] LABS: GLUCOSE COMMENT 1 Received Meds; GLUCOSE,POINT OF CARE 184 MG/DL (70-110)
[2016-08-19 06:30] LABS: GLUCOSE COMMENT 1 Received Meds; GLUCOSE,POINT OF CARE 157 MG/DL (70-110)
[2016-08-19 06:30] LABS: GLUCOSE COMMENT 1 Received Meds; GLUCOSE,POINT OF CARE 153 MG/DL (70-110)
[2016-08-19 06:31] LABS: GLUCOSE COMMENT 1 Received Meds; GLUCOSE,POINT OF CARE 178 MG/DL (70-110)
[2016-08-21 10:22] LABS: GLUCOSE COMMENT 1 Received Meds; GLUCOSE,POINT OF CARE 141 MG/DL (70-110)
[2016-08-21 10:22] LABS: GLUCOSE COMMENT 1 Received Meds; GLUCOSE,POINT OF CARE 157 MG/DL (70-110)
[2016-08-21 10:22] LABS: GLUCOSE COMMENT 1 Received Meds; GLUCOSE,POINT OF CARE 201 MG/DL (70-110)
[2016-08-21 10:23] LABS: GLUCOSE COMMENT 1 Received Meds; GLUCOSE,POINT OF CARE 176 MG/DL (70-110)
[2016-08-21 10:23] LABS: GLUCOSE COMMENT 1 Received Meds; GLUCOSE,POINT OF CARE 120 MG/DL (70-110)
== END 2016-08-13 19:45 | DRG 854 ==
LOC: EMS 10:24 → 6N 15:58 → 5S 08-04 09:13
PROVIDERS: ADMIT Internal Medicine; ATTEND Internal Medicine
PROC: 0S9D0ZZ Drainage of Left Knee Joint, Open Approach (ICD-10-PCS; 2016-08-04)
PROC: 0S9D3ZZ Drainage of Left Knee Joint, Percutaneous Approach (ICD-10-PCS; principal; 2016-08-04 08:00)
PROC: 30233N1 Transfusion of Nonautologous Red Blood Cells into Peripheral Vein, Percutaneous Approach (ICD-10-PCS; 2016-08-07)
PROC: 02HV33Z Insertion of Infusion Device into Superior Vena Cava, Percutaneous Approach (ICD-10-PCS; 2016-08-10)
PROC: B548ZZA Ultrasonography of Superior Vena Cava, Guidance (ICD-10-PCS; 2016-08-10)
DX: A41.9 Sepsis, unspecified organism (principal); M00.9 Pyogenic arthritis, unspecified; J98.11 Atelectasis; J40 Bronchitis, not specified as acute or chronic; D72.829 Elevated white blood cell count, unspecified; E55.9 Vitamin D deficiency, unspecified; I10 Essential (primary) hypertension; D64.9 Anemia, unspecified; D72.823 Leukemoid reaction; E78.00 Pure hypercholesterolemia, unspecified; E78.5 Hyperlipidemia, unspecified; E87.6 Hypokalemia; I25.10 Atherosclerotic heart disease of native coronary artery without angina pectoris; R73.9 Hyperglycemia, unspecified; M54.9 Dorsalgia, unspecified; I49.9 Cardiac arrhythmia, unspecified; R19.7 Diarrhea, unspecified; M19.90 Unspecified osteoarthritis, unspecified site; I48.91 Unspecified atrial fibrillation; J44.9 Chronic obstructive pulmonary disease, unspecified; M48.04 Spinal stenosis, thoracic region; Z85.41 Personal history of malignant neoplasm of cervix uteri; Z88.0 Allergy status to penicillin; Z88.2 Allergy status to sulfonamides; Z90.710 Acquired absence of both cervix and uterus; Z92.21 Personal history of antineoplastic chemotherapy; Z98.61 Coronary angioplasty status; Z90.722 Acquired absence of ovaries, bilateral; Z90.49 Acquired absence of other specified parts of digestive tract; Z79.82 Long term (current) use of aspirin; Z79.899 Other long term (current) drug therapy
CPT/HCPCS: 36569; 70450; 70486; 71260; 72157; 74177; 74220; 76700; 82962; 83036; 83605; 83735; 84132; 84145; 84550; 85014; 85018; 85651; 86140; 86850; 86900; 86901; 86920; 87015; 87040; 87070; 87101; 87205; 87324; 87449; 93005; 93306; 96365; 96366; 96375; 97161; 99285; A9585; G0238; J1644; J1885; J1956; J2704; J3010; J3370; J3490; J3535; J7030; J7040; J7050; J7060; J7120; P9016

== ENCOUNTER → 2017-01-22 | Outpatient (CLI) | payer MEDICARE, OTHER ==
[~2017-01-22] MED LIST changes: -ASPI-1093 PO; +ASPI-1188 PO; +METO50TA18 PO; -METO50TA5 PO
== END | disposition home or self-care (01) ==
LOC: RADPV 10:17
PROVIDERS: ATTEND Hospitalist
DX: M50.321 Other cervical disc degeneration at C4-C5 level (principal); M50.323 Other cervical disc degeneration at C6-C7 level; M47.812 Spondylosis without myelopathy or radiculopathy, cervical region
CPT/HCPCS: 72040

== ENCOUNTER 2018-09-25 17:31 | Emergency (ER) | payer MEDICARE, OTHER ==
[~2018-09-25] VITALS: Ht 152.4 cm; Wt 55.0 kg
[2018-09-25] MEDS ORDERED: KETOROLAC TROMETHAMINE 30 MG/ML VIAL IM ONE (20:30)
[2018-09-25 22:30] VITALS: BP 122/77
[2018-09-26 19:59] LABS: GLUCOSE,POINT OF CARE 114 MG/DL (70-110)
== END 2018-09-25 22:30 | disposition home or self-care (01) ==
LOC: EMS 17:31
DX: M70.72 Other bursitis of hip, left hip (principal); I10 Essential (primary) hypertension; E11.9 Type 2 diabetes mellitus without complications; E78.00 Pure hypercholesterolemia, unspecified; I25.10 Atherosclerotic heart disease of native coronary artery without angina pectoris; Z88.0 Allergy status to penicillin; Z88.2 Allergy status to sulfonamides; Z79.82 Long term (current) use of aspirin; Y93.89 Activity, other specified
CPT/HCPCS: 73503; 82962; 96372; 99283; J1885

== ENCOUNTER 2018-10-29 09:45 | Emergency (ER) | payer MEDICARE, OTHER ==
[~2018-10-29] VITALS: Ht 152.4 cm; Wt 50.0 kg
[~2018-10-29 09:45] MED LIST changes: -ASPI-1188 PO; +ASPI-1419 PO
[2018-10-29 10:00] LABS: GLUCOSE,POINT OF CARE 133 MG/DL (70-110)
[2018-10-29] MEDS ORDERED: METF-960 PO (10:05)
[2018-10-29 10:25] LABS: HEMATOCRIT 34.9 % (36-46); HEMOGLOBIN 11.5 g/dL (12.0-16.0); MEAN CORPUSCULAR HEMOGLOBIN 28.4 pg (26.0-34.0); MEAN CORPUSCULAR HGB CONC 32.9 G/dL (31.0-37.0); MEAN CORPUSCULAR VOLUME 86 fL (80-100); PLATELET COUNT (AUTO) 127 K/uL (150-450); RED BLOOD CELL COUNT(AUTO) 4.05 MIL/uL (4.00-5.20)
[2018-10-29] MEDS ORDERED: SODIUM CHLORIDE 0.9% 1,000 ML IV ONE (10:30)
[2018-10-29 10:34] LABS: CALCIUM, TOTAL 9.5 mg/dL (8.8-10.5); POTASSIUM 3.4 mmol/L (3.5-5.1)
[2018-10-29] MEDS ORDERED: IOVERSOL 320 MG/ML 100 ML VIAL ONE (10:39)
[2018-10-29 10:40] LABS: ALBUMIN 4.1 g/dL (3.4-5.0); BILIRUBIN,TOTAL 0.9 mg/dL (0.1-1.0)
[2018-10-29] MEDS ORDERED: SODIUM CHLORIDE 0.9% 100 ML ONE (10:40)
[2018-10-29] MEDS: ONDANSETRON HCL 4 MG/2 ML VIAL IVP ONE ×2 (10:46→11:29)
[2018-10-29 10:49] LABS: PROTHROMBIN TIME 10.3 SEC (9.4-11.6)
[2018-10-29] MEDS ORDERED: SODIUM CHLORIDE 0.9% 1,500 ML IV ONE (10:51)
[2018-10-29 11:00] LABS: BAND NEUTROPHILS % (MANUAL) 4 % (0-5); EOSINOPHILS % (MANUAL) 2 % (1-6); LYMPHOCYTES % (MANUAL) 10 % (22-44); METAMYELOCYTES % 2 % (0-0); MONOCYTES % (MANUAL) 21 % (2-9); MYELOCYTES % 1 % (0-0); SEGMENTED NEUTROPHILS % 60 % (40-70)
[2018-10-29] MEDS ORDERED: CLINDAMYCIN 600 MG/D5% WATER 50 ML IV ONE (11:00)
[2018-10-29] MEDS ORDERED: 0.9% SODIUM CHLORIDE 10 ML SYRINGE IVP PRN (11:00)
[2018-10-29 11:50] LABS: APPEARANCE,URINE CLEAR (CLEAR); BILIRUBIN,URINE NEGATIVE (NEGATIVE); GLUCOSE, URINE (UA) NEGATIVE (NEGATIVE); KETONES,URINE NEGATIVE (NEGATIVE); LEUKOCYTE ESTERASE ,URINE NEGATIVE (NEGATIVE); NITRATE,URINE NEGATIVE (NEGATIVE); PROTEIN,URINE TRACE (NEGATIVE); UROBILINOGEN,URINE 0.2 mg/dL (<=1.0)
[2018-10-29 11:54] LABS: BACTERIA,URINE None Seen /HPF (None Seen); OCCULT BLOOD,URINE SMALL (NEGATIVE); WBC,URINE None Seen /HPF (0-5)
[2018-10-29 12:02] LABS: LACTIC ACID 1.5 mmol/L (0.4-2.0)
[2018-10-29 14:30] VITALS: BP 144/54
== END 2018-10-29 15:20 | disposition short-term general hospital (02) ==
LOC: EMS 09:47
DX: A41.9 Sepsis, unspecified organism (principal); L03.221 Cellulitis of neck; K11.20 Sialoadenitis, unspecified; I25.10 Atherosclerotic heart disease of native coronary artery without angina pectoris; E11.9 Type 2 diabetes mellitus without complications; E78.00 Pure hypercholesterolemia, unspecified; I10 Essential (primary) hypertension; Z88.0 Allergy status to penicillin; Z88.2 Allergy status to sulfonamides; Z79.84 Long term (current) use of oral hypoglycemic drugs
CPT/HCPCS: 36415; 70491; 71045; 80053; 81001; 82947; 82962; 83605; 85025; 85610; 85730; 87040; 96365; 99285; J2405; J3490; J7030; J7050; Q9967